=== PATIENT | male | born 1950 ===

== ENCOUNTER 2023-11-13 16:04 | Emergency (ER) | payer MEDICARE, BC ==
[~2023-11-13] VITALS: Ht 172.7 cm; Wt 73.9 kg
[2023-11-13] MEDS ORDERED: [UNRECOGNIZED DRUG - OTHER] (16:51)
[2023-11-13] MEDS ORDERED: RANOLAZINE (16:51)
[2023-11-13] MEDS ORDERED: METOPROLOL (16:51)
[2023-11-13] MEDS ORDERED: GABAPENTIN (16:51)
[2023-11-13 17:00] LABS: BASOPHILS # (AUTO) 0.1 K/UL (0.0-0.2); BASOPHILS % (AUTO) 1.6 % (0.0-2.0); EOSINOPHILS # (AUTO) 0.3 K/uL (0.0-0.7); EOSINOPHILS % (AUTO) 4.2 % (0.0-7.0); HEMATOCRIT 40.8 % (36.7-47.1); HEMOGLOBIN 13.5 g/dL (12.5-16.3); LYMPHOCYTES % (AUTO) 14.4 % (20.5-51.5); MEAN CORPUSCULAR HEMOGLOBIN 32.1 uug (23.8-33.4); MEAN CORPUSCULAR HGB CONC 33 g/dL (32.5-36.3); MEAN CORPUSCULAR VOLUME 97.1 fL (73.0-96.2); MONOCYTES # (AUTO) 0.5 K/uL (0.1-1.30); MONOCYTES % (AUTO) 7.8 % (0.0-11.0); NEUTROPHILS # (AUTO) 4.8 K/uL (1.8-8.9); PLATELET COUNT (AUTO) 306 K/uL (152-348); WHITE BLOOD COUNT (AUTO) 6.7 K/uL (3.6-10.2)
[2023-11-13 17:18] LABS: CALCIUM 9.2 mg/dL (8.5-10.1); CARBON DIOXIDE 28 mmol/L (21-32); CHLORIDE 102 mmol/L (98-107); CREATININE 0.8 mg/dL (0.6-1.3); GLUCOSE 126 mg/dL (74-106); POTASSIUM 4.2 mmol/L (3.5-5.1); SODIUM SERUM 137 mmol/L (136-145); UREA NITROGEN, BLOOD 15 mg/dL (7-18)
[2023-11-13] MEDS ORDERED: PRAS10TA5 PO (17:29)
[2023-11-13] MEDS ORDERED: ROSU40TA PO (17:29)
[2023-11-13] MEDS ORDERED: ASPI81TA31 PO (17:29)
[2023-11-13] MEDS ORDERED: CARBIDOPA-LEVODOPA PO ×2 (17:29)
[2023-11-13] MEDS ORDERED: CARB1CAP3 PO (17:29)
[2023-11-13] MEDS ORDERED: RANO10003 PO (17:29)
[2023-11-13] MEDS ORDERED: NITR0.4T48 SL (17:29)
[2023-11-13] MEDS ORDERED: CLON0.252 PO (17:29)
[2023-11-13] MEDS ORDERED: EVOL140P3 SUBCUT (17:29)
[2023-11-13] MEDS ORDERED: METO-356 PO (17:29)
[2023-11-13] MEDS ORDERED: RASA1TAB4 PO (17:29)
[2023-11-13] MEDS ORDERED: ROPI4TAB6 PO (17:29)
[2023-11-13 17:32] LABS: ALANINE AMINOTRANSFERASE 7 U/L (16-63); ALBUMIN 3.3 g/dL (3.4-5.0); ALKALINE PHOSPHATASE 48 U/L (50-136); ASPARTATE AMINOTRANSFERASE 10 U/L (15-37); BILIRUBIN,DIRECT 0.2 mg/dL (0.0-0.2); BILIRUBIN,TOTAL 0.7 mg/dL (0.2-1.0); NT-PRO BNP 51 pg/mL (0-125); TOTAL PROTEIN, SERUM 6.8 g/dL (6.4-8.2)
[2023-11-13 20:53] VITALS: BP 129/78; O2SAT 98
== END 2023-11-13 20:54 | disposition home or self-care (01) ==
LOC: ER 16:14
DX: R07.89 Other chest pain (principal); K21.9 Gastro-esophageal reflux disease without esophagitis; Z79.82 Long term (current) use of aspirin; Z79.899 Other long term (current) drug therapy
CPT/HCPCS: 36415; 71045; 84484; 85025; 85730; 93005